=== PATIENT | female | born 1970 | race Two or more races ===

== ENCOUNTER 2020-01-05 18:25 | Emergency (ER) | payer BC ==
[~2020-01-05] VITALS: Ht 149.9 cm; Wt 52.3 kg
[2020-01-05] MEDS ORDERED: HYDR-3831 PO (18:33)
[2020-01-05] MEDS ORDERED: PANT-31 PO (18:33)
[2020-01-05] MEDS ORDERED: FLUORESCEIN SODIUM 1 MG STRIP ONE (19:40)
[2020-01-05] MEDS ORDERED: IBUPROFEN 600 MG TABLET PO ONE (19:45)
[2020-01-05] MEDS ORDERED: PROPARACAINE HCL 0.5% 15 ML OPHTHALMIC SOLUTION OU ONE (19:45)
[2020-01-05 20:30] VITALS: BP 131/72
== END 2020-01-05 21:24 | disposition home or self-care (01) ==
LOC: EMS 18:43
DX: H57.12 Ocular pain, left eye (principal); H53.8 Other visual disturbances; F41.9 Anxiety disorder, unspecified; K21.9 Gastro-esophageal reflux disease without esophagitis
CPT/HCPCS: 70450

== ENCOUNTER 2020-07-13 13:25 | Emergency (ER) | payer BC ==
[~2020-07-13] VITALS: Ht 149.9 cm; Wt 50.0 kg
[~2020-07-13 13:25] MED LIST: HYDR-3831 PO; PANT-31 PO
[2020-07-13] MEDS ORDERED: ALBUTEROL SULFATE 2.5 MG/0.5 ML NEB SOLUTION NEB ONE (15:15)
[2020-07-13] MEDS ORDERED: IPRATROPIUM BROMIDE 0.5 MG/2.5 ML NEB SOLUTION NEB ONE (15:15)
[2020-07-13 15:30] LABS: COVID AG,FIA SOURCE NASOPHARYNGEAL
[2020-07-13] MEDS ORDERED: ACETAMINOPHEN 325 MG TABLET PO ONE (16:30)
[2020-07-13] MEDS ORDERED: DEXAMETHASONE SOD PHOS 4 MG/ML 5 ML VIAL IM ONE (16:45)
[2020-07-13 17:06] VITALS: BP 135/78
== END 2020-07-13 17:07 | disposition home or self-care (01) ==
LOC: EMS 13:28
DX: J45.909 Unspecified asthma, uncomplicated (principal); Z20.828 Contact with and (suspected) exposure to other viral communicable diseases
CPT/HCPCS: 87426; 94640; 96372; 71045-TC; J7613

== ENCOUNTER 2020-10-27 19:08 | Emergency (ER) | payer BC, OTHER ==
[~2020-10-27] VITALS: Ht 154.9 cm; Wt 52.3 kg
[2020-10-27] MEDS ORDERED: NITROGLYCERIN 2% (1 GM=INCH) PACKET TP ONE (20:15)
[2020-10-27] MEDS ORDERED: ASPIRIN 81 MG CHEWABLE TABLET PO ONE (20:15)
[2020-10-27 20:28] LABS: BASOPHILS % (AUTO) 1.3 % (0.0-2.0); EOSINOPHILS % (AUTO) 5.5 % (1.0-6.0); HEMATOCRIT 40.8 % (36-46); HEMOGLOBIN 13.4 g/dL (12.0-16.0); LYMPHOCYTES # (AUTO) 1.3 K/uL (1.0-4.8); LYMPHOCYTES % (AUTO) 25.3 % (22.0-44.0); MEAN CORPUSCULAR HGB CONC 32.9 G/dL (31.0-37.0); MEAN CORPUSCULAR VOLUME 94 fL (80-100); MONOCYTES # (AUTO) 0.6 K/uL (0.1-1.0); MONOCYTES % (AUTO) 10.6 % (2.0-9.0); NEUTROPHILS % (AUTO) 57.3 % (40.0-70.0); PLATELET COUNT (AUTO) 330 K/uL (150-450); RED BLOOD CELL COUNT(AUTO) 4.34 MIL/uL (4.00-5.20); RED CELL DISTRIBUTION WIDTH 14.1 % (11.5-14.5)
[2020-10-27 20:43] LABS: ANION GAP 9 mmol/L (8-16); CALCIUM, TOTAL 9.4 mg/dL (8.8-10.5); CARBON DIOXIDE 26 mmol/L (22-29); CHLORIDE 100 mmol/L (98-107); GLOMERULAR FILTR. RATE CALC > 60 mL/min (>60); GLUCOSE,RANDOM 123 mg/dL (70-110); POTASSIUM 3.9 mmol/L (3.5-5.1); SODIUM SERUM 135 mmol/L (136-145); UREA NITROGEN, BLOOD 14 mg/dL (7-18)
[2020-10-27 21:20] VITALS: BP 129/75
== END 2020-10-27 21:45 | disposition home or self-care (01) ==
LOC: EMS 19:08
DX: R07.89 Other chest pain (principal)
CPT/HCPCS: 93005; 99285; 36415-L1; 36415-TC; 71045-TC

== ENCOUNTER 2021-07-28 12:35 | Emergency (ER) | payer BC, OTHER ==
[~2021-07-28] VITALS: Ht 149.9 cm; Wt 52.3 kg
[2021-07-28 14:39] LABS: COVID AG,FIA SOURCE NASOPHARYNGEAL
[2021-07-28] MEDS ORDERED: NAPROXEN 250 MG TABLET PO ONE (15:45)
[2021-07-28 16:01] VITALS: BP 118/81
[2021-07-28 23:50] LABS: INFLUENZA TYPE A NEGATIVE FOR TYPE A (NEGATIVE); INFLUENZA TYPE B NEGATIVE FOR TYPE B (NEGATIVE)
== END 2021-07-28 16:46 | disposition home or self-care (01) ==
LOC: EMS 12:49
DX: U07.1 COVID-19 (principal); F41.9 Anxiety disorder, unspecified
CPT/HCPCS: 36415; 71045; 87426; 87804; 93005; 99285; U0003

== ENCOUNTER 2021-11-01 15:53 | Emergency (ER) | payer BC, OTHER ==
[~2021-11-01] VITALS: Ht 149.9 cm; Wt 53.5 kg
[2021-11-01] MEDS ORDERED: LIDOCAINE 5% TRANSDERMAL PATCH TD ONE (18:30)
[2021-11-01] MEDS ORDERED: ACETAMINOPHEN 500 MG TABLET PO ONE (18:30)
[2021-11-01] MEDS ORDERED: METHOCARBAMOL 500 MG TABLET PO ONE (18:30)
[2021-11-01] MEDS ORDERED: LIDO700A15 TP (20:42)
[2021-11-01] MEDS ORDERED: METH-659 PO (20:43)
[2021-11-01 20:53] VITALS: BP 121/67
== END 2021-11-01 21:08 | disposition home or self-care (01) ==
LOC: EMS 15:53
DX: S13.4XXA Sprain of ligaments of cervical spine, initial encounter (principal); M54.6 Pain in thoracic spine; F41.9 Anxiety disorder, unspecified; J45.909 Unspecified asthma, uncomplicated; K21.9 Gastro-esophageal reflux disease without esophagitis; Z79.899 Other long term (current) drug therapy; V49.49XA Driver injured in collision with other motor vehicles in traffic accident, initial encounter; Y93.89 Activity, other specified; Y92.89 Other specified places as the place of occurrence of the external cause; Y99.0 Civilian activity done for income or pay
CPT/HCPCS: 72125; 99284; 73030-TC; Z7502; Z7610

== ENCOUNTER 2022-01-09 18:32 | Emergency (ER) | payer BC, OTHER ==
[~2022-01-09] VITALS: Ht 149.9 cm; Wt 52.3 kg
[~2022-01-09 18:32] MED LIST changes: +LIDO700A15 TP; +METH-659 PO
[2022-01-09] MEDS ORDERED: MORPHINE SULFATE 2 MG/ML SYRINGE IVP ONE (22:15)
[2022-01-09] MEDS ORDERED: SODIUM CHLORIDE 0.9% 1,000 ML IV ONE ×2 (22:15→23:45)
[2022-01-09] MEDS ORDERED: PERTUSS(ACELL),DIPH,TET VAC/PF 0.5 ML SYRINGE IM. ONE (22:15)
[2022-01-09 22:29] LABS: BASOPHILS % (AUTO) 0.3 % (0.0-2.0); EOSINOPHILS % (AUTO) 1.6 % (1.0-6.0); HEMOGLOBIN 11.8 g/dL (12.0-16.0); LYMPHOCYTES # (AUTO) 1.7 K/uL (1.0-4.8); LYMPHOCYTES % (AUTO) 14.8 % (22.0-44.0); MEAN CORPUSCULAR HGB CONC 33.7 G/dL (31.0-37.0); MEAN CORPUSCULAR VOLUME 86 fL (80-100); MONOCYTES # (AUTO) 0.7 K/uL (0.1-1.0); MONOCYTES % (AUTO) 6.4 % (2.0-9.0); NEUTROPHILS # (AUTO) 8.9 K/uL (1.8-7.7); NEUTROPHILS % (AUTO) 76.9 % (40.0-70.0); PLATELET COUNT (AUTO) 342 K/uL (150-450); RED BLOOD CELL COUNT(AUTO) 4.07 MIL/uL (4.00-5.20); RED CELL DISTRIBUTION WIDTH 13.5 % (11.5-14.5)
[2022-01-09 22:39] LABS: ANION GAP 4 mmol/L (8-16); CALCIUM, TOTAL 9.2 mg/dL (8.8-10.5); CARBON DIOXIDE 28 mmol/L (22-29); CHLORIDE 102 mmol/L (98-107); CREATININE 0.63 mg/dL (0.60-1.30); GLOMERULAR FILTR. RATE CALC > 60 mL/min (>60); GLUCOSE,RANDOM 99 mg/dL (70-110); POTASSIUM 4.3 mmol/L (3.5-5.1); SODIUM SERUM 134 mmol/L (136-145); UREA NITROGEN, BLOOD 10 mg/dL (7-18)
[2022-01-09 22:46] LABS: ALANINE AMINOTRANSFERASE 18 U/L (12-78); ALKALINE PHOSPHATASE 52 U/L (46-116); ASPARTATE AMINOTRANSFERASE 20 U/L (15-37); BILIRUBIN,TOTAL 0.7 mg/dL (0.1-1.0); LIPASE 70 U/L (73-393); TOTAL PROTEIN, SERUM 7.1 g/dL (6.4-8.2)
[2022-01-09 23:00] VITALS: BP 129/77
== END 2022-01-10 02:09 | disposition left against medical advice (07) ==
LOC: EMS 18:33
DX: K92.2 Gastrointestinal hemorrhage, unspecified (principal); R10.84 Generalized abdominal pain; S00.87XA Other superficial bite of other part of head, initial encounter; R07.9 Chest pain, unspecified; F41.9 Anxiety disorder, unspecified; J45.909 Unspecified asthma, uncomplicated; H52.209 Unspecified astigmatism, unspecified eye; F90.9 Attention-deficit hyperactivity disorder, unspecified type; M06.9 Rheumatoid arthritis, unspecified; F12.90 Cannabis use, unspecified, uncomplicated; Z86.79 Personal history of other diseases of the circulatory system; Z87.19 Personal history of other diseases of the digestive system; Z98.890 Other specified postprocedural states; W54.0XXA Bitten by dog, initial encounter; Y93.89 Activity, other specified; Y92.89 Other specified places as the place of occurrence of the external cause; Y99.8 Other external cause status
CPT/HCPCS: 36415; 74176; 80053; 81002; 83690; 84484; 85025; 90471; 90715; 93005; 96374; 99285; J2270; J7030